=== PATIENT | male | born 1980 | race American Indian/Alaskan Native ===

== ENCOUNTER 2019-04-17 08:30 | Outpatient (CLI) | payer BC ==
--- NOTE | 2019-04-17 10:23 | Ultrasound Report ---
ABDOMINAL ULTRASOUND LIMITED (RIGHT UPPER QUADRANT) HISTORY: Abnormal liver function tests. Diabetes mellitus. COMPARISON: None. TECHNIQUE: Multiple real-time ultrasonographic grayscale images were obtained of the right upper abdo men. FINDINGS: Pancreas: Partially obscured by poor acoustic windows. Visualized portions without significant abnor mality. Liver: Diffusely increased echogenicity consistent with hepatic steatosis. Liver is enlarged in the r ight lobe measures 19 cm in length. No liver mass. Gallbladder: No stones, wall thickening or pericholecystic fluid. The gallbladder wall measures 1.7 m m. Negative Delgado sign. Common bile duct: 2.9 mm. Right kidney: No significant abnormality. No hydronephrosis. Kidney measures Kidney measures 10.3 cm. Additional findings: No ascites. IMPRESSION: 1. Hepatomegaly and increased liver echogenicity consistent with hepatic steatosis. 2. No cholelithiasis and no signs of acute cholecystitis. 3. Limited imaging of the pancreas due to body habitus and bowel gas. Signer Name: Ameya Recinos MD Signed: 04/17/2019 10:18 AM Workstation Name: [id number]
== END 2019-04-17 08:31 | disposition home or self-care (01) ==
LOC: SPVWC 08:30
PROVIDERS: ATTEND Internal Medicine Endocrinology, Diabetes & Metabolism
DX: R94.5 Abnormal results of liver function studies (principal); R16.0 Hepatomegaly, not elsewhere classified
CPT/HCPCS: 76705